=== PATIENT | female | born 1965 | race Caucasian/White ===

== ENCOUNTER → 2017-01-23 | Outpatient (CLI) | payer BC ==
--- NOTE | 2017-01-23 13:48 | MM ---
Reason for exam: screening (asymptomatic). Last mammogram was performed 1 year and 1 month ago. History: Patient is postmenopausal. Benign left US cyst aspiration of the left breast, May 21, 2007. Taking estrogen for 1 year. Physical Findings: A clinical breast exam by your physician is recommended on an annual basis and results should be correlated with mammographic findings. MG Screening Mammo w CAD Bilateral CC and MLO view(s) were taken. XCCL view(s) were taken of the right breast. Prior study comparison: December 28, 2015, bilateral MG screening mammo w CAD. July 03, 2015, left breast MG 3d diag mammo w/cad LT. There are scattered fibroglandular densities. Finding: There is a 4.6 mm equal density (isodense), oval mass located 6.8 cm from the nipple in the right breast. New finding since December 28, 2015 and July 03, 2015. ASSESSMENT: Incomplete: need additional imaging evaluation, BI-RAD 0 RECOMMENDATION: Ultrasound of the right breast. (upper outer quadrant) [facility] will attempt to contact patient to return for ultrasound.
== END | disposition home or self-care (01) ==
LOC: RADMAMWWP 07:26
PROVIDERS: ATTEND Family Medicine
DX: Z12.31 Encounter for screening mammogram for malignant neoplasm of breast (principal)

== ENCOUNTER → 2017-01-28 | Outpatient (CLI) | payer BC ==
--- NOTE | 2017-01-28 11:16 | USB ---
Reason for exam: additional evaluation requested from abnormal screening. History: Patient is postmenopausal. Benign left US cyst aspiration of the left breast, May 21, 2007. Taking estrogen for 1 year. Physical Findings: Nurse did not find any significant physical abnormalities on exam. US Breast Workup Limited RT Right breast ultrasound demonstrates a 4 x 3 x 5mm oval, cystic lesion at 10 o'clock and a 7 x 6 x 7mm oval, cystic lesion at 10 o'clock. These results were verbally communicated with the patient and result sheet given to the patient on 01/28/17. ASSESSMENT: Probably benign, BI-RAD 3 RECOMMENDATION: Ultrasound of the right breast in 6 months.
== END | disposition home or self-care (01) ==
LOC: RADUSWWP 08:56
PROVIDERS: ATTEND Family Medicine
DX: R92.8 Other abnormal and inconclusive findings on diagnostic imaging of breast (principal)

== ENCOUNTER → 2018-02-20 | Outpatient (CLI) | payer BC ==
--- NOTE | 2018-02-20 12:48 | EST ---
EXERCISE STRESS AGE: 52 SEX: F HT: 5'3" WT: 165 PROTOCOL: Jeff Stress test STAGE: II DURATION OF EXERCISE: 7:00 HEART RATE REST: 68 BLOOD PRESSURE REST: 121/73 MAXIMUM HEART RATE ACHIEVED: 155 MAXIMUM BLOOD PRESSURE: 207/66 85% MPHR: 143 100% MPHR: 168 METS: 8.6 INDICATIONS: Shortness of breath. CLINICAL INFORMATION: Baseline EKG revealed normal sinus rhythm without significant ST-T changes. Patient walked on standard Jeff protocol for a total duration of 7 minutes, achieved a maximal heart rate of 155 beats per minute which is more than 85% of predicted maximum. She developed some fatigue and shortness of breath but did not have any angina or any arrhythmia. As exercise progressed at a rate of about 126 beats per minute she developed some QRS widening. However, as exercise progressed, the QRS widening seems to resolve. There was some baseline artifact. There is no evidence of any ST-segment changes to indicate ischemia. There was no arrhythmia or angina. By EKG criteria this is a negative stress test with fair exercise capacity. As patient exercised, there is one EKG which revealed some QRS widening with exercise, but then it came back to baseline. I do not think this is a significant finding. This is a negative stress test by EKG criteria. MMODL / IJN: [id number] /
== END | disposition home or self-care (01) ==
LOC: RADNMMAIN 10:27
PROVIDERS: ATTEND Family Medicine
DX: R06.02 Shortness of breath (principal); R53.83 Other fatigue
CPT/HCPCS: 93017

== ENCOUNTER → 2018-03-24 | Outpatient (CLI) | payer BC ==
--- NOTE | 2018-03-25 13:40 | MM ---
Reason for exam: additional evaluation requested from prior study. Last mammogram was performed 1 year and 2 months ago. History: Patient is postmenopausal. Benign left US cyst aspiration of the left breast, May 21, 2007. Took hormonal contraceptives for 7 years beginning at age 18. Taking estrogen for 1 year. Physical Findings: Nurse did not find any significant physical abnormalities on exam. MG 3D Diag Mammo W/Cad ISAIAS Bilateral CC and MLO view(s) were taken. Prior study comparison: January 23, 2017, bilateral MG screening mammo w CAD. December 28, 2015, bilateral MG screening mammo w CAD. New nodularity far posterior and lateral right breast. Previously not seen likely because more posterior tissue is included on the present exam. Corresponds to stable axillary tail node on the MLO view. Precautionary 6 month follow up recommended. These results were verbally communicated with the patient and result sheet given to the patient on 03/24/18. ASSESSMENT: Probably benign, BI-RAD 3 RECOMMENDATION: Follow-up diagnostic mammogram of the right breast in 6 months.
== END | disposition home or self-care (01) ==
LOC: RADMAMWWP 08:51
PROVIDERS: ATTEND Family Medicine
DX: R92.8 Other abnormal and inconclusive findings on diagnostic imaging of breast (principal)
CPT/HCPCS: 77062; 77066

== ENCOUNTER → 2018-09-25 | Outpatient (CLI) | payer BC ==
--- NOTE | 2018-09-25 13:36 | MM ---
Reason for exam: follow-up at short interval from prior study. Last mammogram was performed 6 months ago. History: Patient is postmenopausal. Benign left US cyst aspiration of the left breast, May 21, 2007. Took hormonal contraceptives for 7 years beginning at age 18. Taking estrogen for 1 year. Physical Findings: Nurse did not find any significant physical abnormalities on exam. MG 3D Diag Mammo W/Cad RT CC and MLO view(s) were taken of the right breast. Prior study comparison: March 24, 2018, bilateral MG 3d diag mammo w/cad ISAIAS. January 23, 2017, bilateral MG screening mammo w CAD. The breast tissue is heterogeneously dense. This may lower the sensitivity of mammography. There is chronic nodularity in the right breast, decreased in size or stable. There is no discrete abnormality. These results were verbally communicated with the patient and result sheet given to the patient on 09/25/18. ASSESSMENT: Benign, BI-RAD 2 RECOMMENDATION: Routine screening mammogram of both breasts in 6 months.
== END | disposition home or self-care (01) ==
LOC: RADMAMWWP 12:47
PROVIDERS: ATTEND Family Medicine
DX: R92.8 Other abnormal and inconclusive findings on diagnostic imaging of breast (principal)
CPT/HCPCS: 77061; 77065

== ENCOUNTER → 2019-05-25 | Outpatient (CLI) | payer BC ==
--- NOTE | 2019-05-26 09:32 | MM ---
Reason for exam: screening (asymptomatic). Last mammogram was performed 8 months ago. History: Patient is postmenopausal. Benign left US cyst aspiration of the left breast, May 21, 2007. Took hormonal contraceptives for 7 years beginning at age 18. Taking estrogen for 1 year. Physical Findings: A clinical breast exam by your physician is recommended on an annual basis and results should be correlated with mammographic findings. MG Screening Mammo w CAD Bilateral CC and MLO view(s) were taken. Prior study comparison: September 25, 2018, right breast MG 3d diag mammo w/cad RT. March 24, 2018, bilateral MG 3d diag mammo w/cad ISAIAS. The breast tissue is heterogeneously dense. This may lower the sensitivity of mammography. There is chronic nodularity in the right posterior breast. There is no discrete abnormality. ASSESSMENT: Benign, BI-RAD 2 RECOMMENDATION: Routine screening mammogram of both breasts in 1 year.
== END | disposition home or self-care (01) ==
LOC: RADMAMWWP 07:17
PROVIDERS: ATTEND Family Medicine
DX: Z12.31 Encounter for screening mammogram for malignant neoplasm of breast (principal)
CPT/HCPCS: 77067

== ENCOUNTER → 2021-04-26 | Outpatient (CLI) | payer BC ==
--- NOTE | 2021-04-27 11:19 | MM ---
Reason for exam: screening (asymptomatic). Last mammogram was performed 1 year and 11 months ago. History: Patient is postmenopausal and history of other cancer. Benign left US cyst aspiration of the left breast, May 21, 2007. Took hormonal contraceptives for 7 years beginning at age 18. Took estrogen for 1 year. Physical Findings: A clinical breast exam by your physician is recommended on an annual basis and results should be correlated with mammographic findings. MG Screening Mammo w CAD Bilateral CC and MLO view(s) were taken. Prior study comparison: May 25, 2019, bilateral MG screening mammo w CAD. September 25, 2018, right breast MG 3d diag mammo w/cad RT. March 24, 2018, bilateral MG 3d diag mammo w/cad ISAIAS. There are scattered fibroglandular densities. Finding: There is a 4 mm circumscribed oval mass located 3 cm from the nipple in the upper inner quadrant, anterior position of the left breast. New finding since May 25, 2019, September 25, 2018, and March 24, 2018. ASSESSMENT: Incomplete: need additional imaging evaluation, BI-RAD 0 RECOMMENDATION: Special view mammogram of the left breast. If lesion persists on supplemental views, image directed ultrasound is recommended. [facility] will attempt to contact patient to return for supplemental views and ultrasound if indicated.
== END | disposition home or self-care (01) ==
LOC: RADMAMWWP 15:38
PROVIDERS: ATTEND Family Medicine
DX: Z12.31 Encounter for screening mammogram for malignant neoplasm of breast (principal); Z78.0 Asymptomatic menopausal state; Z79.3 Long term (current) use of hormonal contraceptives; Z85.9 Personal history of malignant neoplasm, unspecified
CPT/HCPCS: 77067

== ENCOUNTER → 2021-05-08 | Outpatient (CLI) | payer BC ==
--- NOTE | 2021-05-09 08:10 | MM ---
Reason for exam: additional evaluation requested from abnormal screening. Last mammogram was performed less than 1 month ago. History: Patient is postmenopausal and history of other cancer. Benign left US cyst aspiration of the left breast, May 21, 2007. Took hormonal contraceptives for 7 years beginning at age 18. Took estrogen for 1 year. Physical Findings: Nurse did not find any significant physical abnormalities on exam. MG 3D Work Up W/Cad LT Spot compression CC, spot compression LM, and LM view(s) were taken of the left breast. Prior study comparison: April 26, 2021, bilateral MG screening mammo w CAD. May 25, 2019, bilateral MG screening mammo w CAD. September 25, 2018, right breast MG 3d diag mammo w/cad RT. There are scattered fibroglandular densities. Isodense 6mm oval mass 10 o'clock zone A left breast has overall benign characteristics. Ultrasound recommended. These results were verbally communicated with the patient and result sheet given to the patient on 05/08/21. ASSESSMENT: Incomplete: need additional imaging evaluation, BI-RAD 0 RECOMMENDATION: Ultrasound of the left breast. (10 o'clock)
--- NOTE | 2021-05-09 08:11 | USB ---
Reason for exam: additional evaluation requested from abnormal screening. History: Patient is postmenopausal and history of other cancer. Benign left US cyst aspiration of the left breast, May 21, 2007. Took hormonal contraceptives for 7 years beginning at age 18. Took estrogen for 1 year. US Breast Workup Limited LT Left limited breast ultrasound including focal area of concern, retroareolar and axilla demonstrates a 6 x 2 x 6mm oval, cystic lesion at 10 o'clock and a 5 x 3 x 3mm oval, cystic lesion with septation at 10 o'clock, one of these likely correspond to the mammographic mass. 6 month follow up recommended. Scanned 9-12 o'clock. These results were verbally communicated with the patient and result sheet given to the patient on 05/08/21. ASSESSMENT: Probably benign, BI-RAD 3 RECOMMENDATION: Follow-up diagnostic mammogram of the left breast in 6 months.
== END | disposition home or self-care (01) ==
LOC: RADMAMWWP 14:54
PROVIDERS: ATTEND Family Medicine
DX: N63.15 Unspecified lump in the right breast, overlapping quadrants (principal); N60.02 Solitary cyst of left breast; Z78.0 Asymptomatic menopausal state; Z85.9 Personal history of malignant neoplasm, unspecified; Z79.3 Long term (current) use of hormonal contraceptives
CPT/HCPCS: 77061; 77065

== ENCOUNTER → 2021-11-09 | Outpatient (CLI) | payer BC ==
--- NOTE | 2021-11-14 10:07 | MM ---
Reason for exam: follow-up at short interval from prior study. Last mammogram was performed 6 months ago. History: Patient is postmenopausal and has history of other cancer at age 53. Benign left US cyst aspiration of the left breast, May 21, 2007. Took hormonal contraceptives for 7 years beginning at age 18. Took estrogen for 1 year. Physical Findings: A clinical breast exam by your physician is recommended on an annual basis and results should be correlated with mammographic findings. MG 3D Diag Mammo W/Cad LT CC and MLO view(s) were taken of the left breast. Prior study comparison: May 08, 2021, left breast MG 3d work up w/cad LT. April 26, 2021, bilateral MG screening mammo w CAD. May 25, 2019, bilateral MG screening mammo w CAD. March 24, 2018, bilateral MG 3d diag mammo w/cad ISAIAS. There are scattered fibroglandular densities. There is chronic nodularity in the left breast. There is no discrete abnormality. ASSESSMENT: Benign, BI-RAD 2 RECOMMENDATION: Return to routine screening mammogram schedule for both breasts. Back on schedule.
== END | disposition home or self-care (01) ==
LOC: RADMAMWWP 10:10
PROVIDERS: ATTEND Family Medicine
DX: R92.8 Other abnormal and inconclusive findings on diagnostic imaging of breast (principal); Z78.0 Asymptomatic menopausal state
CPT/HCPCS: 77061; 77065

== ENCOUNTER → 2022-05-10 | Outpatient (CLI) | payer BC ==
--- NOTE | 2022-05-13 17:21 | MM ---
Reason for Exam: Screening (asymptomatic). Last screening mammogram was performed 12 month(s) ago. Patient History: Menarche at age 15. First Full-Term at age 25. Postmenopausal. Other cancer, age 53. Patient used Estrogen for 1 year. Hormonal Contraceptives for 7 years from age 18 until age 27. 05/21/2007, Benign Cyst Aspiration on the left side. Risk Values: Kim 5 year model risk: 1.2%. NCI Lifetime model risk: 8.1%. Prior Study Comparison: 04/26/2021 Bilateral Screening Mammogram, [facility]. 05/08/2021 Left Diagnostic Mammogram, [facility]. 11/09/2021 Left Diagnostic Mammogram, [facility]. Tissue Density: There are scattered fibroglandular densities. Findings: Analyzed By CAD. Chronic nodularity is within the right breast. No suspicious groups of microcalcifications, spiculated or lobular masses, architectural distortion or other secondary signs of malignancy are mammographically apparent. Overall Assessment: Benign, BI-RAD 2 Management: Screening Mammogram of both breasts in 1 year. A negative mammogram report should not preclude additional follow up of suspicious palpable abnormalities. Patient should continue monthly self breast exam. A clinical breast exam by your physician is recommended on an annual basis and results should be correlated with mammographic findings. Electronically signed and approved by: Noel Ortiz D.O. Radiologis
== END | disposition home or self-care (01) ==
LOC: RADMAMWWP 09:18
PROVIDERS: ATTEND Family Medicine
DX: Z12.31 Encounter for screening mammogram for malignant neoplasm of breast (principal); Z78.0 Asymptomatic menopausal state
CPT/HCPCS: 77063; 77067

== ENCOUNTER 2022-08-28 07:16 | Day surgery (SDC) | payer BC ==
[2022-08-23 11:47] VITALS: BMI 27.4
[~2022-08-28 07:16] MED LIST: LACTATED RINGERS 1,000 ML IV SCH; LIDOCAINE 1% (10MG/ML) FOR IV START INTRADERMA PRN; ONDANSETRON 4 MG/2 ML VIAL IVP PRN
[2022-08-28 07:51] VITALS: RESP 16; TEMP 98.2
[2022-08-28] MEDS ORDERED: PROPOFOL 10 MG/ML 20 ML VIAL IV ONE (08:00)
--- NOTE | 2022-08-28 08:08 | P.GSHP ---
History of Present Illness H&P Date: 08/28/22 CHIEF COMPLAINT: Blood in stools, history of colon polyps, family history colon polyps HISTORY OF PRESENT ILLNESS: The patient is a 56-year-old female who presents with blood in stools, history of colon polyps, family history colon polyps. She did Sutab prep. Lower endoscopy was offered for further evaluation and management. PAST MEDICAL HISTORY: Please see list. PAST SURGICAL HISTORY: Please see list. MEDICATIONS: Please see list. ALLERGIES: Please see list. SOCIAL HISTORY: No illicit drug use FAMILY HISTORY: No reports of Crohn disease or ulcerative colitis. REVIEW OF ORGAN SYSTEMS: CONSTITUTIONAL: No reports of fevers or chills. PHYSICAL EXAM: VITAL SIGNS: Stable GENERAL: Well-developed pleasant in no acute distress. HEENT: No scleral icterus. Extraocular movements grossly intact. Moist buccal mucosa. NECK: Supple without lymphadenopathy. CHEST: Unlabored respirations. Equal bilateral excursions. CARDIOVASCULAR: Regular rate and rhythm. Distal 2+ pulses. ABDOMEN: Soft, nontender, nondistended. MUSCULOSKELETAL: No clubbing, cyanosis, or edema. ASSESSMENT: 1. Blood in stools, history of colon polyps, family history colon polyps PLAN: 1. Recommend proceeding with a lower endoscopy Past Medical History Past Medical History: Cancer, Diabetes Mellitus, Sleep Apnea/CPAP/BIPAP Additional Past Medical History / Comment(s): Hx skin cancer on upper chest/clavicle. Diet Controlled Diabetes. Blood in stool. Not using CPAP recently due to weight loss. History of Any Multi-Drug Resistant Organisms: None Reported Past Surgical History: Section, Tonsillectomy Additional Past Surgical History / Comment(s): Skin cancer removed from uper chest/clavicle, colonoscopies. Past Anesthesia/Blood Transfusion Reactions: No Reported Reaction Past Psychological History: Anxiety Smoking Status: Former smoker Past Alcohol Use History: Occasional Additional Past Alcohol Use History / Comment(s): Smoked as a teen for a couple of yrs. Past Drug Use History: None Reported - Past Family History Father Family Medical History: Cancer Medications and Allergies Home Medications Medication Instructions Recorded Confirmed Type No Known Home Medications 08/23/22 08/28/22 History Allergies Allergy/AdvReac Type Severity Reaction Status Date / Time Penicillins Allergy Rash/Hives Verified 08/28/22 07:48 Sulfa (Sulfonamide Allergy Rash/Hives Verified 08/28/22 07:48 Antibiotics) Surgical - Exam Vital Signs Temp Pulse Resp BP Pulse Ox 98.2 F 94 16 140/87 97 08/28/22 07:49 08/28/22 07:49 08/28/22 07:49 08/28/22 07:49 08/28/22 07:49
--- NOTE | 2022-08-28 08:38 | P.PCN ---
Date of Procedure: 08/28/22 Description of Procedure: PREOPERATIVE DIAGNOSIS: Personal history of colon polyps Family history colon polyps Blood in stool POSTOPERATIVE DIAGNOSIS: Cecal diverticulosis Pandiverticulosis Tubular adenoma cecum Tubular adenoma sigmoid colon Tubular adenoma rectum Sigmoid diverticulosis Internal hemorrhoids, grade 2 OPERATION: Colonoscopy to the ileocecal valve and appendiceal orifice, cecum Colonoscopy with hot snare polypectomy Colonoscopy with cold forceps biopsy SURGEON: Felicia Lomax MD. ANESTHESIA: MAC. INDICATIONS: The patient is an 56-year-old male who presents family history of colon polyps and father and personal history of colon polyps. soup presents with blood in stools. Last colonoscopy 5 years. Benefits and risks were described and informed consent was obtained. DESCRIPTION OF PROCEDURE: The patient had undergone Sutab prep. The patient had been brought into the operating room and laid in the left lateral decubitus position. After adequate intravenous sedation, the rectum was examined with 2% lidocaine jelly. External hemorrhoids were encountered. The rectal tone was within normal limits. No lesions were palpated in the rectal vault. An Olympus colonoscope was advanced until the cecum, ileocecal valve and appendiceal orifice were clearly viewed. The prep was excellent. Sigmoid diverticulosis was encountered with diverticulosis of the cecum. Colonic polyps were found and removed. No evidence of focal colitis was found. Retroflexion of the scope demonstrated grade 2 internal hemorrhoids without active bleeding or inflammation. The colon was desufflated. The patient had tolerated the procedure well. Withdrawal time was over 6 minutes. FINDINGS: Aronchick preparation quality scale 1 (1-5) Internal hemorrhoids, grade 2 External hemorrhoids, grade 2. No arteriovenous malformations. Sigmoid diverticulosis with cecal diverticulosis and pandiverticulosis Removal of 6 polyps: - Snare polypectomy 10 cm from the anal verge, 8 mm tubulovillous adenoma, rectum - Cold forceps biopsy at 15 cm from the anal verge 4 , 3 to 4 mm polyps, sigmoid colon. - Cold forceps biopsy at the cecum near appendiceal orifice, 3 mm polyp. No focal colitis. RECOMMENDATIONS: Given severity of tubular adenomas, recommend repeat colonoscopy 2 years, 2024 Recommend fiber diet, 25-30 g daily Plan - Discharge Summary Discharge Rx Participant: No New Discharge Prescriptions: Continue No Known Home Medications Discharge Medication List No Known Home Medications 08/23/22 [History] Follow up Appointment(s)/Referral(s): Felicia Lomax MD [STAFF PHYSICIAN] - As Needed Patient Instructions/Handouts: *Surgery [facility] - (Anesthesia) Endoscopy Discharge Instructions, Diverticulosis (DC), Colorectal Polyps (GEN), Diverticulosis Diet (GEN) Activity/Diet/Wound Care/Special Instructions: Repeat colonoscopy in 2 years, 2024 Discharge Disposition: HOME SELF-CARE
[2022-08-28 08:53] VITALS: BP 120/82; PULSE 55
== END 2022-08-28 09:29 | disposition home or self-care (01) ==
LOC: ORWHC2ENDO 07:16
PROVIDERS: ATTEND Surgery Plastic and Reconstructive Surgery
DX: D12.0 Benign neoplasm of cecum (principal); D12.5 Benign neoplasm of sigmoid colon; D12.8 Benign neoplasm of rectum; K57.30 Diverticulosis of large intestine without perforation or abscess without bleeding; R19.5 Other fecal abnormalities; K64.8 Other hemorrhoids; Z83.71 Family history of colonic polyps; Z87.19 Personal history of other diseases of the digestive system; Z88.0 Allergy status to penicillin; Z88.1 Allergy status to other antibiotic agents; Z88.2 Allergy status to sulfonamides; E11.9 Type 2 diabetes mellitus without complications; Z86.010 Personal history of colon polyps; Z85.828 Personal history of other malignant neoplasm of skin; G47.30 Sleep apnea, unspecified; Z87.891 Personal history of nicotine dependence
CPT/HCPCS: 88305; 45380; 45385; J2704

== ENCOUNTER → 2023-05-12 | Outpatient (CLI) | payer BC ==
--- NOTE | 2023-05-12 14:01 | BD ---
EXAMINATION TYPE: Axial Bone Density DATE OF EXAM: 05/12/2023 CLINICAL HISTORY: 57 years old Female. ICD-10 CODE: M81.0 OSTEOPOROSIS Height: Weight: FRAX RISK QUESTIONS: Glucocorticoids (More than 3mos): not regularly, only as needed (Ex: prednisone, prednisolone, methylprednisolone, dexamethasone, and hydrocortisone). RISK FACTORS HISTORY OF: Postmenopausal woman: yes, at about 46 yrs old Hyperparathyroidism: no Adrenal Insufficiency: no MEDICATIONS: Prednisone or other steroids: only with illness or injury. Additional Medications: Buspar, skin ca with radiation, 2019, diet controlled diabetic, vit d Additional History: anxiety, diabetic, hx of skin ca, EXAM MEASUREMENTS: Bone mineral densitometry was performed using the [employer] System. Bone mineral density as measured about the Lumbar spine is: ----- L1-L4(G/cm2): 1.080 T Score Values are as follows: ----- L1: -0.7 ----- L2: -1.1 ----- L3: -0.4 ----- L4: -1.2 ----- L1-L4: -0.8 Z Score Values are as follows: ----- L1: 0.0 ----- L2: - 0.4 ----- L3: 0.3 ----- L4: -0.4 ----- L1-L4: -0.1 Bone mineral density is her first Dexa scan, baseline study. Bone mineral density about the R hip (g/cm2): 0.913 Bone mineral density about the L hip (g/cm2): 0.952 T Score values are as follows: -----R Neck: -1.7 -----L Neck: -1.2 -----R Total: -0.8 -----L Total: -0.4 Z Score values are as follows: -----R Neck: -0.7 -----L Neck: -0.3 -----R Total: -0.1 -----L Total: 0.2 Bone mineral density is a baseline study today. FRAX%s: The graph provided illustrates a 7.6% chance for a major osteoporotic fx and a 0.7% chance fo r the hips probability for fx in 10 years time. IMPRESSION: Osteopenia (T Score between -2.5 and -1). There is slightly increased risk of fracture and the patient may be considered for treatment. Re-Screen 2-5 years. NOTE: T-SCORE=SD OF THE YOUNG ADULT MEAN.
--- NOTE | 2023-05-13 15:07 | MM ---
Reason for Exam: Screening (asymptomatic). Last screening mammogram was performed 12 month(s) ago. Patient History: Menarche at age 15. First Full-Term at age 25. Postmenopausal. Other cancer, age 53. Patient used Estrogen for 1 year. Hormonal Contraceptives for 7 years from age 18 until age 27. 05/21/2007, Benign Cyst Aspiration on the left side. Risk Values: Kim 5 year model risk: 1.3%. NCI Lifetime model risk: 8.0%. Prior Study Comparison: 01/23/2017 Bilateral Screening Mammogram, [facility]. 03/24/2018 Bilateral Diagnostic Mammogram, [facility]. 09/25/2018 Right Diagnostic Mammogram, [facility]. 05/25/2019 Bilateral Screening Mammogram, [facility]. 04/26/2021 Bilateral Screening Mammogram, [facility]. 05/08/2021 Left Diagnostic Mammogram, [facility]. 11/09/2021 Left Diagnostic Mammogram, [facility]. 05/10/2022 Bilateral MG 3D screening mammo w/cad, [facility]. Tissue Density: The breast tissue is heterogeneously dense. This may lower the sensitivity of mammography. Findings: Analyzed By CAD. Pattern appears symmetrical and stable. Chronic nodularity is within the bilateral breasts. No significant interval change is evident. No suspicious groups of microcalcifications, spiculated or lobular masses, architectural distortion or other secondary signs of malignancy are mammographically apparent. Overall Assessment: Benign, BI-RAD 2 Management: Screening Mammogram of both breasts in 1 year. A negative mammogram report should not preclude additional follow up of suspicious palpable abnormalities. Patient should continue monthly self breast exam. A clinical breast exam by your physician is recommended on an annual basis and results should be correlated with mammographic findings. Electronically signed and approved by: Noel Ortiz D.O. Radiologis
== END | disposition home or self-care (01) ==
LOC: RADBDWWP 13:03
PROVIDERS: ATTEND Family Medicine
DX: Z12.31 Encounter for screening mammogram for malignant neoplasm of breast (principal); M81.0 Age-related osteoporosis without current pathological fracture; M85.89 Other specified disorders of bone density and structure, multiple sites; Z78.0 Asymptomatic menopausal state
CPT/HCPCS: 77063; 77067; 77080

== ENCOUNTER → 2024-02-12 | Outpatient (CLI) | payer BC ==
--- NOTE | 2024-02-13 22:10 | US ---
EXAMINATION TYPE: US transvaginal DATE OF EXAM: 02/12/2024 COMPARISON: NONE CLINICAL INDICATION: Female, 58 years old with history of N94.10 pain during intercourse; Pain during intercourse. Hx 1 C section, hx ablation, LMP was years ago. . TECHNIQUE: Transvaginal (TV). Date of LMP: Years ago per patient. EXAM MEASUREMENTS: Uterus: 4.8 x 3.2 x 2.7 cm Endometrial Stripe: 0.45 cm Right Ovary: Obscured Left Ovary: Obscured 1. Uterus: Anteverted Very heterogeneous.Complex lesion seen within left cervix: 1.4 x 1.3 x 1.3 cm. *Subcentimeter anechoic area seen within the cervix. 2. Endometrium: Measures 0.45 cm. 3. Right Ovary: Not visualized 4. Left Ovary: Not visualized 5. Bilateral Adnexa: Appears wnl 6. Posterior cul-de-sac: Appears wnl IMPRESSION: 1. Normal uterus and endometrial stripe. 2. 1.4 x 1.3 x 1.3 cm cystic mass in the cervix with internal echoes consistent with hemorrhagic cyst s or proteinaceous cyst. 3. Ovaries not visualized. 4. No fluid in the cul-de-sac
== END | disposition home or self-care (01) ==
LOC: RADUSWWP 15:55
PROVIDERS: ATTEND Family Medicine
DX: N94.10 Unspecified dyspareunia (principal); N88.8 Other specified noninflammatory disorders of cervix uteri
CPT/HCPCS: 76830

== ENCOUNTER → 2024-06-02 | Outpatient (CLI) | payer BC ==
--- NOTE | 2024-06-03 11:14 | MM ---
Reason for Exam: Screening (asymptomatic). Last mammogram was performed 1 year(s) and 1 month(s) ago. Patient History: Menarche at age 15. First Full-Term at age 25. Postmenopausal. Patient has history of breast feeding. Other cancer, age 53. Patient used Estrogen for 1 year. Hormonal Contraceptives for 7 years from age 18 until age 27. 05/21/2007, Benign Cyst Aspiration on the left side. Risk Values: Kim 5 year model risk: 1.4%. NCI Lifetime model risk: 7.8%. Prior Study Comparison: 11/09/2021 Left Diagnostic Mammogram, [facility]. 05/10/2022 Bilateral MG 3D screening mammo w/cad, [facility]. 05/12/2023 Bilateral MG 3D screening mammo w/cad, [facility]. Tissue Density: There are scattered areas of fibroglandular density. Findings: Analyzed By CAD. There is no suspicious group of microcalcifications or new suspicious mass in either breast. Overall Assessment: Benign, BI-RAD 2 Management: Screening Mammogram of both breasts in 1 year. . Patient should continue monthly self-breast exams. A clinical breast exam by your physician is recommended on an annual basis. This exam should not preclude additional follow-up of suspicious palpable abnormalities. Note on Kim scores and lifetime risk: 1. A Kim score greater than 3% is considered moderate risk. If this is the case, consider specialist referral to assess eligibility for a risk reducing agent. 2. If overall lifetime risk for the development of breast cancer is 20% or higher, the patient may qualify for future screening with alternating mammogram and breast MRI. [facility], , 06/03/2024 11:11 AM. Electronically signed and approved by: Chetan Mcclellan M.D. Radiologis
== END | disposition home or self-care (01) ==
LOC: RADMAMWWP 12:31
PROVIDERS: ATTEND Family Medicine
CPT/HCPCS: 77063; 77067

== ENCOUNTER → 2024-06-11 | Outpatient (CLI) | payer BC ==
[2024-06-11 09:55] LABS: African American GFR (CKD) 85 (>60 ml/min/1.73 sqM); Blood Urea Nitrogen 21 mg/dL (7-17); Non-African American GFR(CKD) 74 (>60 ml/min/1.73 sqM)
--- NOTE | 2024-06-11 11:27 | CT ---
EXAMINATION TYPE: CT abdomen pelvis w con DATE OF EXAM: 06/11/2024 COMPARISON: None HISTORY: LLQ pain and epigastric pain CT DLP: 1189 mGycm Automated exposure control for dose reduction was used. TECHNIQUE: Helical acquisition of images was performed from the lung bases through the pelvis. CONTRAST: Performed with Oral Contrast and with IV Contrast, patient injected with 100 mL of Isovue 370. The lung bases are clear. The gallbladder is normal without distention, wall thickening, pericholecystic fluid or gallstones. T here is no biliary ductal dilatation. There is no focal mass or organomegaly involving the liver, pancreas, spleen or adrenal glands. There is no solid renal mass or hydronephrosis and there is homogeneous contrast enhancement of the r enal parenchyma. The caliber the abdominal aorta is normal is no retroperitoneal adenopathy or hemorr karan. The bowel loops are normal in caliber and there is no evidence of dilatation or obstruction. No infla mmatory changes are identified in the bowel wall or mesentery. There is mild diverticulosis of the si gmoid colon but no CT evidence of diverticulitis. There is no free intraperitoneal air or fluid. No pelvic mass, free fluid, abscess or adenopathy. The osseous structures and soft tissues are intact. IMPRESSION: Mild diverticulosis the sigmoid colon with no CT evidence of diverticulitis. No acute changes in the abdomen or pelvis. [facility], , 06/11/2024 11:25 AM
== END ==
LOC: RADCTMAIN 09:21
PROVIDERS: ATTEND Family Medicine
CPT/HCPCS: 36415; 74177; 82565; 84520

== ENCOUNTER → 2024-11-19 | Outpatient (CLI) | payer BC ==
--- NOTE | 2024-11-19 13:14 | CA ---
Exercise Stress Test Report Name: Zaina Ruiz Exam Date: 11/19/2024 11:09 Exam Location: [facility] Ht (in): 63 Wt (lb): 165 BSA: 1.78 Ordering Phys: Paul Sharif MD Referring Phys: Paul Sharif MD Technologist: kennedy khalil Age: 58 Gender: F : 1965 Procedure CPT: Indications: R06.02 SHORT OF BREATH R07.89 OTHER CHEST PAIN ICD-10 Codes: Patient History: Chest tightness and shortness of breath Medications: Meds past 24 hrs: Pretest Chest Pain: STRESS TEST Jeff Protocol Exercise Duration (min:sec): 05:[address] Depressions (mm): Angina Score: Figueredo Score: Resting HR (bpm): 75 Peak HR (bpm): 148 Resting BP (mmHg): 137 / 83 Peak BP (mmHg): 209 / 73 MPHR: 162 Target HR: 138 % MPHR: 91 METS: 7.0 Total Dose: Peak Dose: Atropine: Double Product: 10483 BP Response: Stress Termination: MAX EXERTION/TARGET HR Stress Symptoms: NO SYMPTOMS Stress Summary: ECG ANALYSIS Resting ECG: Normal sinus rhythm normal axis normal intervals Stress ECG: Patient exercised on Jeff protocol for 5 minutes achieving 85% of predicted maximal heart rate without chest pain at peak exercise there was half a millimeter upsloping ST segment depression noted CONCLUSIONS Poor exercise tolerance Nondiagnostic EKG changes with exercise Dr. Evangelista Sarmiento MD (Electronically Signed) Final Date: 19 November 2024 13:13
== END | disposition home or self-care (01) ==
LOC: RADNMMAIN 10:22
PROVIDERS: ATTEND Family Medicine
DX: R94.31 Abnormal electrocardiogram [ECG] [EKG] (principal); R06.02 Shortness of breath; R07.89 Other chest pain
CPT/HCPCS: 93017

== ENCOUNTER → 2024-12-16 | Outpatient (CLI) | payer BC ==
--- NOTE | 2024-12-16 08:13 | US ---
EXAMINATION TYPE: US abdomen complete DATE OF EXAM: 12/16/2024 COMPARISON: CT(06/11/2024) CLINICAL INDICATION: Female, 58 years old with history of R10.84 ABD PAIN; trouble breathing, abdomin al tightness TECHNIQUE: Grayscale and color Doppler imaging of the abdomen was performed. FINDINGS: EXAM MEASUREMENTS: Liver Length: 19.4 cm 3 normal less than 15.5 cm. Gallbladder Wall: 0.2 cm CBD: 0.5 cm, color Doppler imaging was utilized to isolate the common bile duct for measurement. Spleen: 11.1 cm Right Kidney: 10.3x4.4x5.3 cm Left Kidney: 9.8x4.2x5.3 cm ENVIRONMENTAL RESEARCH SCIENTIST NOTES: slightly limited scan due to overlying bowel/ pt body habitus Pancreas: Tail obscured by overlying bowel gas Liver: Enlarged, slightly heterogenous Gallbladder: No stones seen Evidence for sonographic Diallo's sign: No CBD: wnl Spleen: wnl Right Kidney: wnl, No hydronephrosis, calculi or masses seen Left Kidney: wnl, No hydronephrosis, calculi or masses seen Upper IVC: slightly limited, prox: wnl as best seen Abd Aorta: wnl as best seen IMPRESSION: 1. Hepatomegaly. [facility], , 12/16/2024 8:10 AM
== END | disposition home or self-care (01) ==
LOC: RADUSWWP 07:38
PROVIDERS: ATTEND Family Medicine
DX: R16.0 Hepatomegaly, not elsewhere classified (principal)
CPT/HCPCS: 76700

== ENCOUNTER → 2024-12-20 | Outpatient (CLI) | payer BC ==
--- NOTE | 2024-12-20 19:41 | CA ---
Transthoracic Echo Report Name: Zaina Ruiz Age: 58 Gender: F : 1965 Exam Date: 12/20/2024 16:51 Exam Location: [facility] Ht (in): 63 Wt (lb): 67 Ordering Physician: Paul Sharif MD Attending/Referring Phys: Paul Sharif MD Environmental Health Manager Jazz Coon, [facility] Procedure CPT: Indications: R06.02 SHORT OF BREATH R07.89 OTHER CHEST PAIN Cardiac Hx: Technical Quality: Good Contrast 1: Total Dose (mL): Contrast 2: Total Dose (mL): MEASUREMENTS (Male / Female) Normal Values 2D ECHO LV Diastolic Diameter PLAX 4.4 cm 4.2 - 5.9 / 3.9 - 5.3 cm LV Systolic Diameter PLAX 2.9 cm IVS Diastolic Thickness 0.7 cm 0.6 - 1.0 / 0.6 - 0.9 cm LVPW Diastolic Thickness 0.9 cm 0.6 - 1.0 / 0.6 - 0.9 cm LV Relative Wall Thickness 0.4 LVOT Diameter 2.0 cm Aortic Root Diameter 3.0 cm LV Diastolic Volume MOD BP 92.6 cm??? 67 - 155 / 56 - 104 cm??? LV Systolic Volume MOD BP 29.6 cm??? 22 - 58 / 19 - 49 cm??? LV Ejection Fraction MOD BP 68.1 % >= 55 % LV Cardiac Index MOD BP 4822.6 cm???/min???m??? LV Diastolic Volume MOD 4C 91.8 cm??? LV Systolic Volume MOD 4C 31.7 cm??? LV Ejection Fraction MOD 4C 65.5 % LV Cardiac Index MOD 4C 4592.5 cm???/min???m??? LV Diastolic Length 4C 8.3 cm LV Systolic Length 4C 6.3 cm LV Diastolic Volume MOD 2C 89.2 cm??? LV Systolic Volume MOD 2C 27.3 cm??? LV Ejection Fraction MOD 2C 69.4 % LV Cardiac Index MOD 2C 4734.1 cm???/min???m??? LV Diastolic Length 2C 8.7 cm LV Systolic Length 2C 6.4 cm Ascending Aorta Diameter 3.1 cm DOPPLER AV Peak Velocity 169.0 cm/s AV Peak Gradient 11.4 mmHg AV Mean Velocity 114.4 cm/s AV Mean Gradient 6.0 mmHg AV Velocity Time Integral 35.1 cm LVOT Peak Velocity 112.8 cm/s LVOT Peak Gradient 5.1 mmHg LVOT Velocity Time Integral 20.2 cm LVOT Stroke Volume 60.9 cm??? LVOT Stroke Volume Index 50.1 ml/m??? LVOT Cardiac Index 4655.6 cm???/min???m??? AV Area Cont Eq vti 1.7 cm??? AV Area Cont Eq pk 2.0 cm??? Mitral E Point Velocity 67.3 cm/s Mitral A Point Velocity 66.1 cm/s Mitral E to A Ratio 1.0 MV Deceleration Time 188.3 ms MV E' Velocity 5.6 cm/s Mitral E to MV E' Ratio 12.1 TR Peak Velocity 221.8 cm/s TR Peak Gradient 19.7 mmHg Right Atrial Pressure 5.0 mmHg Pulmonary Artery Systolic Pressu 24.7 mmHg Right Ventricular Systolic Press 24.7 mmHg PV Peak Velocity 92.0 cm/s PV Peak Gradient 3.4 mmHg FINDINGS Left Ventricle Left ventricular ejection fraction is estimated at 60-65 %. Left ventricular cavity size normal. Left ventricular wall thickness normal. No obvious regional wall motion abnormalities. Right Ventricle Normal right ventricular size and function. Right ventricular systolic pressure within normal limits. Right Atrium Normal right atrial size. Left Atrium Normal left atrial size. Mitral Valve Structurally normal mitral valve. No evidence for mitral valve prolapse. No mitral stenosis. Trace mitral regurgitation. Aortic Valve Trileaflet aortic valve. No aortic valve stenosis or regurgitation. Tricuspid Valve Structurally normal tricuspid valve. No tricuspid stenosis. Mild tricuspid regurgitation. Pulmonic Valve Structurally normal pulmonic valve. No pulmonic stenosis. No pulmonic regurgitation. Pericardium No pericardial effusion. Aorta Normal size aortic root and proximal ascending aorta. CONCLUSIONS Left ventricular ejection fraction 60 to 65% Trace mitral regurgitation Mild tricuspid regurgitation No pericardial effusion Previewed by: Dr. Lonnie Franks DO (Electronically Signed) Final Date: 20 December 2024 19:40
== END | disposition home or self-care (01) ==
LOC: RADECHMAIN 16:43
PROVIDERS: ATTEND Family Medicine
DX: I08.1 Rheumatic disorders of both mitral and tricuspid valves (principal)
CPT/HCPCS: 93306